=== PATIENT | male | born 2000 | race Caucasian/White ===

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

== ENCOUNTER 2019-04-02 11:42 | Emergency (ER) | payer SELFPAY ==
--- NOTE | 2019-04-02 12:19 | ED ---
Head Injury - HPI Summary HPI Summary: 18-year-old male presents with head injury today. He states that he was at work and a piece of wood ended up hit him in his chest and in the head. No LOC. He states that he was wearing safety glasses and they ended up shattering. He states that he flushed his eyes. He denies any eye pain or foreign body in his eyes. Denies any dizziness. No neck pain. No chest pressure or shortness of breath. - History Of Current Complaint Chief Complaint: EDHeadInjury Stated Complaint: HEAD INJURY Time Seen by Provider: 04/02/19 11:59 Pain Intensity: 5 - Allergies/Home Medications Allergies/Adverse Reactions: Allergies Allergy/AdvReac Type Severity Reaction Status Date / Time No Known Allergies Allergy Verified 04/02/19 11:47 PMH/Surg Hx/FS Hx/Imm Hx Endocrine/Hematology History: Denies: Hx Anticoagulant Therapy Cardiovascular History: Reports: Hx Angina Respiratory History: Reports: Hx Asthma Infectious Disease History: No Infectious Disease History: Denies: Traveled Outside the in Last 30 Days - Family History Known Family History: Positive: Non-Contributory - Social History Alcohol Use: Occasionally Hx Substance Use: No Substance Use Type: Reports: Marijuana Hx Tobacco Use: No Smoking Status (MU): Never Smoked Tobacco Amount Used/How Often: Twice per day Length of Time of Smoking/Using Tobacco: 1 Year Have You Smoked in the Last Year: No Review of Systems Negative: Fever Negative: Chest Pain Negative: Shortness Of Breath Positive: Nausea. Negative: Vomiting Positive: Headache All Other Systems Reviewed And Are Negative: Yes Physical Exam Triage Information Reviewed: Yes Vital Signs On Initial Exam: Initial Vitals Temp Pulse Resp BP Pulse Ox 97.0 F 84 16 132/68 95 04/02/19 11:43 04/02/19 11:43 04/02/19 11:43 04/02/19 11:43 04/02/19 11:43 Vital Signs Reviewed: Yes Appearance: Positive: Well-Appearing Skin: Positive: Warm, Dry, Other - superficial laceration to forehead Head/Face: Positive: Normal Head/Face Inspection Eyes: Positive: Normal, EOMI, ALEX, Conjunctiva Clear ENT: Positive: Normal ENT inspection, Pharynx normal, TMs normal Respiratory/Lung Sounds: Positive: Clear to Auscultation, Breath Sounds Present Cardiovascular: Positive: Normal, RRR Musculoskeletal: Positive: Normal Neurological: Positive: Sensory/Motor Intact, Alert, Oriented to Person Place, Time, CN Intact II-III, Finger to Nose Psychiatric: Positive: Normal - Regina Coma Scale Best Eye Response: 4 - Spontaneous Best Motor Response: 6 - Obeys Commands Best Verbal Response: 5 - Oriented Coma Scale Total: 15 Procedures - Sedation Patient Received Moderate/Deep Sedation with Procedure: No Diagnostics - Vital Signs Vital Signs Temp Pulse Resp BP Pulse Ox 04/02/19 11:43 97.0 F 84 16 132/68 95 - Laboratory Lab Statement: Any lab studies that have been ordered have been reviewed, and results considered in the medical decision making process. Head Injury Course/Dx Course Of Treatment: 18-year-old male presents with head injury today. He states that he was at work and a piece of wood ended up hit him in his chest and in the head. No LOC. He states that he was wearing safety glasses and they ended up shattering. He states that he flushed his eyes. He denies any eye pain or foreign body in his eyes. Denies any dizziness. No neck pain. No chest pressure or shortness of breath. On exam has normal exam. Has superficial laceration to forehead. Normal neuro exam. According to [employer] rules does not need any head imaging. Gave concussion precautions. told follow up with primary. Patient understands and agrees with plan. - Diagnoses Differential Diagnosis/HQI/PQRI: Concussion Without LOC, Contusion, Intracranial Bleed Provider Diagnoses: Head injury Discharge ED - Sign-Out/Discharge Documenting (check all that apply): Patient Departure - Discharge Plan Condition: Good Disposition: HOME Patient Education Materials: Head Injury (ED) Forms: *Work Release Referrals: Brent Mckeon MD [Primary Care Provider] - Martínez Mercado MD [Medical Doctor] - Additional Instructions: Place ice on area as needed Take Tylenol or ibuprofen for headache every 6 hours Modify activities as tolerated Follow up with primary within 5 days Return to ED if develop vomiting, severe headache, change in behavior, or any new or worsening symptoms - Billing Disposition and Condition Condition: GOOD Disposition: Home - Attestation Statements Provider Attestation: pt seen by midlevel provider independently, based on their assessment, it was not necessary to present the case to me but I was available for consultation. I did not form a physician-patient relationship with the patient. The chart however, has been reviewed. am signing this note strictly in an administrative capacity.
[2019-04-02 12:35] VITALS: BP 127/70
== END 2019-04-02 12:30 | disposition home or self-care (01) ==
LOC: ED 11:42
DX: S09.90XA Unspecified injury of head, initial encounter (principal); W20.8XXA Other cause of strike by thrown, projected or falling object, initial encounter; Y92.89 Other specified places as the place of occurrence of the external cause; Y99.0 Civilian activity done for income or pay
CPT/HCPCS: 99281

== ENCOUNTER 2019-07-05 00:48 | Emergency (ER) | payer OTHER ==
--- NOTE | 2019-07-05 00:56 | ED ---
Upper Extremity Pain - HPI Summary HPI Summary: Patient complains of right thumb pain since slamming it in a car door 3 days ago. Patient was not evaluated at that time. Persistent pain. Purple under nail. Denies loss of function or sensation. Denies any other pain, injury or symptoms. - History of Current Complaint Chief Complaint: EDExtremityUpper Stated Complaint: RT THUMB PAIN PER PT Time Seen by Provider: 07/05/19 00:53 Hx Obtained From: Patient Mechanism Of Injury: Blunt Trauma Onset/Duration: Started Days Ago Timing: Constant Severity Initially: Moderate Severity Currently: Moderate Pain Location: Finger Character: Dull, Aching, Throbbing Aggravating Factor(s): Movement, Flexion Alleviating Factor(s): Nothing - Allergies/Home Medications Allergies/Adverse Reactions: Allergies Allergy/AdvReac Type Severity Reaction Status Date / Time No Known Allergies Allergy Verified 07/05/19 00:52 Home Medications: Home Medications Albuterol Sulfate [Proventil Hfa] 2 puff INH QID PRN 10/15/17 [History Confirmed 10/17/17] PMH/Surg Hx/FS Hx/Imm Hx Endocrine/Hematology History: Denies: Hx Anticoagulant Therapy Cardiovascular History: Reports: Hx Angina Respiratory History: Reports: Hx Asthma History: Denies: Hx Dialysis Sensory History: Denies: Hx Eye Prosthesis Opthamlomology History: Denies: Hx Legally Blind EENT History: Denies: Hx Deafness Neurological History: Denies: Hx Dementia Infectious Disease History: No Infectious Disease History: Denies: Traveled Outside the [place] in Last 30 Days - Family History Known Family History: Positive: Non-Contributory - Social History Alcohol Use: Occasionally Hx Substance Use: No Substance Use Type: Reports: Marijuana Hx Tobacco Use: No Smoking Status (MU): Never Smoked Tobacco Amount Used/How Often: Twice per day Length of Time of Smoking/Using Tobacco: 1 Year Have You Smoked in the Last Year: No Review of Systems Constitutional: Negative Eyes: Negative ENT: Negative Cardiovascular: Negative Respiratory: Negative Gastrointestinal: Negative Genitourinary: Negative Musculoskeletal: Other Skin: Negative Neurological/Mental Status: Negative Psychological: Normal All Other Systems Reviewed And Are Negative: Yes Physical Exam - Summary Physical Exam Summary: Hematoma under right thumbnail. Mild separation of nail from nail bed. Nail still attached in place. Triage Information Reviewed: Yes Vital Signs On Initial Exam: Initial Vitals Temp Pulse Resp BP Pulse Ox 97.6 F 71 15 160/96 100 07/05/19 00:50 07/05/19 00:50 07/05/19 00:50 07/05/19 00:50 07/05/19 00:50 Vital Signs Reviewed: Yes Appearance: Positive: Well-Appearing Skin: Positive: Warm Head/Face: Positive: Normal Head/Face Inspection Eyes: Positive: Normal Neck: Positive: Supple Respiratory/Lung Sounds: Positive: Clear to Auscultation Cardiovascular: Positive: Normal Abdomen Description: Positive: Nontender Musculoskeletal: Positive: Normal Neurological: Positive: Normal Psychiatric: Positive: Normal AVPU Assessment: Alert - Regina Coma Scale Best Eye Response: 4 - Spontaneous Best Motor Response: 6 - Obeys Commands Best Verbal Response: 5 - Oriented Coma Scale Total: 15 Procedures - Sedation Patient Received Moderate/Deep Sedation with Procedure: No Diagnostics - Vital Signs Vital Signs Temp Pulse Resp BP Pulse Ox 07/05/19 00:50 97.6 F 71 15 160/96 100 - Laboratory Lab Statement: Any lab studies that have been ordered have been reviewed, and results considered in the medical decision making process. Course/Dx - Course Course Of Treatment: Patient complains of abdominal pain since slamming it in a car door 3 days ago. Patient was not evaluated at that time. Persistent pain. Denies any other pain, injury or symptoms. Vital signs within normal limits. Physical exam consistent with subungual hematoma. Perforation of nailbed in 4 places facilitated moderate drainage of blood. - Diagnoses Provider Diagnoses: Hematoma, subungual, thumb, right Discharge ED - Sign-Out/Discharge Documenting (check all that apply): Patient Departure - Discharge Plan Condition: Stable Disposition: HOME Patient Education Materials: Subungual Hematoma (ED) Referrals: Brent Mckeon MD [Medical Doctor] - Additional Instructions: Cover nail with antibiotic dressing and then wrap. Keep protected until healed. You may wash with warm running water and soap. Do not submerge underwater until healed. Follow-up with primary care. - Billing Disposition and Condition Condition: STABLE Disposition: Home
--- OUTSIDE RECORDS SUMMARY | 2019-07-05 01:00 | XMS REPORT | Continuity of Care Document ---
:2000 External Reference #:[id number] Author Name Brent Levine MD Address [address] [place] [address] Care Team Providers Name Role Phone Michael,Linda - Pulmonary Disease Care Team Information Salesforce Consultant [phone] Brent Levine MD - Family Care Team Information Salesforce Consultant Medicine Problems Description No Information Available Social History Type Date Description Comments Sex Unknown Tobacco Use Start: Unknown Light tobacco smoker (10 or fewer cigarettes/day) Smoking Status Reviewed: 06/05/19 Light tobacco smoker (10 or fewer cigarettes/day) Allergies, Adverse Reactions, Alerts Description No Known Drug Allergies Medications Active Medications SIG Qnty Indications Ordering Provider Date Sertraline HCL 1 by mouth every 90tabs Brent Fuentes 06/05/2019 25mg day MD Abner Tablets Proventil HFA 2 puffs prior to 1units Brent Fuentes 01/16/2013 exercise as MD Abner 108(90Base) mcg/Act needed Aerosol Immunizations CPT Code Status Date Vaccine Lot # [id number] Given 01/25/2017 VFC Meningococcal Conjugate Vacc 97230 Given 01/25/2017 Meningococcal Conjugate Vaccine,Serogroups For [id number] Intramuscular Use 62667 Given 02/17/2015 Meningococcal Conjugate Vaccine,Serogroups For [id number] Intramuscular Use 15716 Given 11/29/2010 Varicella (Chicken Pox) Immunization [id number] 26808 Given 11/29/2010 Tdap Tetanus, W Pertussis [id number] 68606 Given 12/08/2004 IPV Inactive Poliovirus Vaccine 90632 Given 12/08/2004 MMR Virus Immunization 65564 Given 12/08/2004 DTaP Immunization 19028 Given 02/29/2004 Varicella (Chicken Pox) Immunization 57264 Given 03/19/2001 IPV Inactive Poliovirus Vaccine 78713 Given 03/19/2001 DTaP & Hib Immunization 45750 Given 12/11/2000 MMR Virus Immunization 41675 Given 09/11/2000 Hepatitis B Immunization, [place]-19 Years 58364 Given 03/13/2000 DTaP Immunization 06193 Given 03/13/2000 (Hib) Hemoplilus Influenza B 99915 Given 01/23/2000 Comvax Hep B & Hib Immunization 86853 Given 01/23/2000 IPV Inactive Poliovirus Vaccine 12256 Given 01/23/2000 DTaP Immunization 27570 Given 1999 Comvax Hep B & Hib Immunization 24098 Given 1999 IPV Inactive Poliovirus Vaccine 20397 Given 1999 DTaP Immunization Vital Signs Date Vital Result Comment 06/05/2019 4:09pm BP Systolic 92 mmHg BP Diastolic 66 mmHg Heart Rate 66 /min Body Temperature 98.4 F Respiratory Rate 15 /min Height 62.5 inches 5'2.50" Weight 111.00 lb BMI (Body Mass Index) 20.0 kg/m2 Body Mass Index Percentile 13 % Weight Percentile <3rd Height Percentile 3 % 08/07/2017 9:40am BP Systolic 102 mmHg BP Diastolic 68 mmHg Heart Rate 64 /min Body Temperature 98.8 F Respiratory Rate 16 /min Height 62.5 inches 5'2.50" Weight 106.25 lb BMI (Body Mass Index) 19.1 kg/m2 Body Mass Index Percentile 13 % Weight Percentile <3rd Height Percentile 3 % Results Description No Information Available Procedures Description No Information Available Medical Devices Description No Information Available Encounters Description No Information Available Assessments Date Code Description Provider 06/05/2019 Z00.01 Encounter for general adult medical Brent Levine MD examination with abnormal findings 06/05/2019 F41.1 Generalized anxiety disorder Brent Levine MD Plan of Treatment Future Appointment(s):07/03/2019 4:00 pm - Brent Levine MD at [facility]/05/2019 - Brent Levine MDZ00.01 Encounter for general adult medical examination with abnormal [id number] Generalized anxiety disorderFollow up:one monthAllNew Medication:Sertraline HCL 25 mg - 1 by mouth every dayComments:Medication Management Patient Understands medications he's taking? Yes No Are there Barriersto Adherence? Yes No Has the patient been asked about herbal supplements and therapies, and OTC meds? Yes No Functional Status Description No Information Available Mental Status Description No Information Available Referrals Description No Information Available
[2019-07-05] MEDS ORDERED: Lidocaine 1% MPF ** 5 ML VIAL INJ ONE (01:18)
[2019-07-05] MEDS ORDERED: Bacitracin OINTMENT* 0.5% 0.5 oz TUBE TOPICAL ONE (01:37)
[2019-07-05 02:00] VITALS: BP 117/42
== END 2019-07-05 01:59 | disposition home or self-care (01) ==
LOC: ED 00:48
DX: S60.011A Contusion of right thumb without damage to nail, initial encounter (principal); M79.644 Pain in right finger(s); Z79.899 Other long term (current) drug therapy; W23.0XXA Caught, crushed, jammed, or pinched between moving objects, initial encounter; Y92.9 Unspecified place or not applicable
CPT/HCPCS: 99282